=== PATIENT | female | born 1965 | race Caucasian/White ===

== ENCOUNTER 2019-09-03 12:20 | Emergency (ER) | payer MEDICAID ==
[~2019-09-03] VITALS: Ht 177.8 cm; Wt 90.9 kg
--- NOTE | 2019-09-03 13:29 | NUR ---
PT LAYING IN BED, NO SIGNS OF DISTRESS, PROVIDED WITH WARM BLANKETS, ALL NEEDS MET AT THIS TIME.
--- NOTE | 2019-09-03 14:15 | NUR ---
PT LAYING IN BED, NO SIGNS OF DISTRESS, PROVIDED BLANKET.
--- NOTE | 2019-09-03 15:09 | NUR ---
PT LAYING IN BED, CALL LIGHT IN REACH. LIGHTS OFF TO PROMOTE REST.
[2019-09-03 15:13] VITALS: BP 136/81
--- NOTE | 2019-09-03 15:13 | NUR ---
US TO BEDSIDE. NO SIGNS OF DISTRESS.
--- NOTE | 2019-09-03 16:01 | NUR ---
PT LAYING IN BED, LIGHTS OFF TO PROMOTE REST. PROVIDED WITH APPLESAUCE AND WATER.
== END 2019-09-03 16:26 | disposition home or self-care (01) ==
LOC: ED 16:25
DX: L03.116 Cellulitis of left lower limb (principal); G43.909 Migraine, unspecified, not intractable, without status migrainosus; G40.909 Epilepsy, unspecified, not intractable, without status epilepticus; G89.29 Other chronic pain; I10 Essential (primary) hypertension; F17.200 Nicotine dependence, unspecified, uncomplicated; Z86.718 Personal history of other venous thrombosis and embolism
CPT/HCPCS: 93970; 99284